=== PATIENT | female | born 1975 | race African-American/Black ===

== ENCOUNTER 2017-01-04 13:47 | Emergency (ER) | payer MEDICAID ==
[~2017-01-04] VITALS: Ht 162.6 cm; Wt 60.0 kg
[~2017-01-04 13:47] MED LIST: ALBU8.5H5 INH; CIPR500T3 PO; GABA300C10 PO; SENN1TAB7 PO; SUMA100T3 PO; ZOLP10TA PO
[2017-01-04] MEDS ORDERED: METOCLOPRAMIDE 5 MG/ML, 2ML ONE (14:07)
[2017-01-04] MEDS ORDERED: SODIUM CHLORIDE 0.9% 1,000 ML IV ONE (14:09)
[2017-01-04] MEDS ORDERED: FAMOTIDINE 20 MG/2 ML ONE (14:10)
[2017-01-04] MEDS ORDERED: MAALOX/HYOSCYAMINE/LIDOCAINE 45 ML BOTTLE ONE (14:11)
[2017-01-04] MEDS ORDERED: FAMOTIDINE 20 MG/2 ML IVP ONE (14:30)
[2017-01-04] MEDS ORDERED: SODIUM CHLORIDE FLUSH 10ML SYR IVF ONE (14:30)
[2017-01-04] MEDS ORDERED: SODIUM CHLORIDE 0.9% 1,000ML IVBOLUS ONE (14:30)
[2017-01-04] MEDS ORDERED: MAALOX/HYOSCYAMINE/LIDOCAINE 45 ML BOTTLE PO ONE (14:30)
[2017-01-04] MEDS ORDERED: METOCLOPRAMIDE 5 MG/ML, 2ML IVPush ONE (14:30)
[2017-01-04 14:56] LABS: ASPARTATE AMINO TRANSFERASE 15 U/L (15-37); BLOOD UREA NITROGEN 9 mg/dL (7-18)
[2017-01-04 15:32] VITALS: BP 115/76
== END 2017-01-04 15:35 | disposition home or self-care (01) ==
LOC: ED 15:29
DX: A08.4 Viral intestinal infection, unspecified (principal); F20.9 Schizophrenia, unspecified; Z85.3 Personal history of malignant neoplasm of breast; Z88.0 Allergy status to penicillin; Z88.6 Allergy status to analgesic agent
CPT/HCPCS: 36415; 74020; 80053; 81001; 83690; 85025; 96361; 96374; 96375; 99285; J2765; J7030; S0028

== ENCOUNTER 2020-05-23 19:43 | Emergency (ER) | payer SELFPAY ==
[~2020-05-23] VITALS: Ht 162.6 cm; Wt 57.0 kg
[~2020-05-23 19:43] MED LIST changes: +SENN-177 PO; -SENN1TAB7 PO
[2020-05-23] MEDS ORDERED: ONDANSETRON 2MG/ML, 2ML IVPush ONE (20:00)
[2020-05-23] MEDS ORDERED: SODIUM CHLORIDE FLUSH 10ML SYR IVF ONE (20:00)
[2020-05-23 20:21] LABS: BASOPHILS % (AUTO) 1 % (0-1); EOSINOPHILS % (AUTO) 1 % (1-7); LYMPHOCYTES % (AUTO) 16 % (22-44); MEAN CORPUSCULAR HEMOGLOBIN 29.6 pg (27.0-34.8); MEAN CORPUSCULAR HGB CONC 33.2 g/dL (32.4-35.8); MEAN PLATELET VOLUME 7.7 fL (7.4-10.4); MONOCYTES % (AUTO) 10 % (2-9); NEUTROPHILS % (AUTO) 73 % (42-75); PLATELET COUNT 456 x10^3/uL (130-400); RED BLOOD COUNT 5.29 x10^6/uL (3.82-5.3); RED CELL DISTRIBUTION WIDTH 13.3 % (9.6-15.2)
[2020-05-23 20:25] LABS: MD NO
[2020-05-23 20:29] LABS: ALANINE AMINOTRANSFERASE 30 U/L (12-78); ALBUMIN 3.2 g/dL (3.4-5.0); ANION GAP 7 mmol/L (5-15); CHLORIDE 100 mmol/L (98-107); CREATININE 0.99 mg/dL (0.55-1.02)
[2020-05-23 20:31] LABS: ALKALINE PHOSPHATASE 78 U/L (45-117); BILIRUBIN,TOTAL 0.6 mg/dL (0.2-1.0)
--- NOTE | 2020-05-23 20:51 | NUR ---
AUGER OPERATOR: NO ANSWER X1 FROM LOBBY
--- NOTE | 2020-05-23 21:34 | NUR ---
CHIEF ACCOUNTING OFFICER: PT TO ROOM VIA WHEELCHAIR AT THIS TIME WITH SOCK MENDER
[2020-05-23] MEDS ORDERED: ONDANSETRON ODT 4 MG ONE (21:52)
[2020-05-23] MEDS ORDERED: ONDANSETRON ODT 4 MG PO ONE (22:00)
[2020-05-23] MEDS ORDERED: PROMETHAZINE 25 MG/ML, 1ML ONE (22:09)
[2020-05-23 22:12] VITALS: BP 123/91
--- NOTE | 2020-05-23 22:13 | NUR ---
PATIENT GIVEN MEDICATIONS, TOLERATED WELL. NO NOTED VOMIT IN ROOM, PATIENT ABLE TO TOLERATE 4OZ OF WATER WITH PREVIOUS MEDICATION ADMINISTRATION.
--- NOTE | 2020-05-23 22:26 | NUR ---
PATIENT RESTING IN BED, NO NOTED NEEDS AT THIS TIME. REMINDED THAT URINE SPECIMEN IS REQUIRED, PATIENT STATED "I DO NOT HAVE TO PEE".
[2020-05-23] MEDS ORDERED: PROMETHAZINE 25 MG/ML, 1ML IM ONE (22:30)
--- NOTE | 2020-05-23 23:19 | NUR ---
PATIENT HAS BEEN CLEARED FOR DISCHARGE. NO NOTED ACUTE DISTRESS. VITAL SIGNS STABLE.
== END 2020-05-23 23:20 | disposition home or self-care (01) ==
LOC: ED 21:54
DX: R10.13 Epigastric pain (principal); R11.2 Nausea with vomiting, unspecified; F17.200 Nicotine dependence, unspecified, uncomplicated; Z90.710 Acquired absence of both cervix and uterus; F20.9 Schizophrenia, unspecified
CPT/HCPCS: 36415; 76700; 80053; 80307; 83690; 85025; 96372; 99284; J2550; Q0162